=== PATIENT | male | born 1980 | race Caucasian/White ===

== ENCOUNTER 2016-08-20 21:41 | Emergency (ER) | payer OTHER ==
[~2016-08-20] VITALS: Ht 182.9 cm; Wt 65.8 kg
--- NOTE | 2016-08-20 21:53 | NUR ---
Patient to ER bed 8 to gown for evaluation. Side rails up. Report given to Jan. VENEGAS.
[2016-08-20 21:54] VITALS: BP 114/64; PULSE 107; RESP 14; TEMP 98.2; O2SAT 99
--- NOTE | 2016-08-20 22:07 | NUR ---
ER Dr. Crum at bedside examining patient.
[2016-08-20] MEDS ORDERED: NACL 0.9% 1,000 ML IV ONE ×2 (22:11→23:20)
[2016-08-20] MEDS ORDERED: PANTOPRAZOLE SODIUM 40 MG/VIAL (PROTONIX) IVP ONE (22:15)
[2016-08-20] MEDS ORDERED: ONDANSETRON HCL 4 MG/2 ML VIAL IVP ONE (22:15)
--- NOTE | 2016-08-20 22:15 | NUR ---
Pt. presented to ED with c/o n/v with blood and diarrhea since 1800 today. Pt. states that he ate [employer] at noon and began to feel sick. Pt. states that a friend that ate lunch with him is also exhibiting the same symptoms.
--- NOTE | 2016-08-20 22:20 | NUR ---
# 18 gauge angiocath placed to right AC. Use of asceptic technique. Opsite placed over site. Blood return noted. Blood for lab drawn from site. Flushed with 10 cc of normal saline. No evidence of infiltration noted. Patient tolerated well.
[2016-08-20 22:40] LABS: BASOPHILS # (AUTO) 0.1 K/uL (0.0-0.2); EOSINOPHILS # (AUTO) 0.1 K/uL (0.0-0.4); EOSINOPHILS % (AUTO) 0.8 % (0.0-4.0); HEMATOCRIT 52.5 % (36-54); HEMOGLOBIN 17.4 g/dL (14.0-18.0); LYMPHOCYTES # (AUTO) 0.4 K/uL (1.0-5.5); LYMPHOCYTES % (AUTO) 3.2 % (20.5-51.5); MEAN CORPUSCULAR HEMOGLOBIN 29 pg (27-31); MEAN CORPUSCULAR HGB CONC 33 % (32-36); MEAN CORPUSCULAR VOLUME 87 fL (79.0-98.0); MONOCYTES # (AUTO) 0.5 K/uL (0.0-1.0); MONOCYTES % (AUTO) 4.2 % (1.7-9.3); NEUTROPHILS # (AUTO) 10.4 K/uL (1.8-7.7); NEUTROPHILS % (AUTO) 90.8 % (40.0-70.0); PLATELET COUNT (AUTO) 156 K/uL (130-430); RED BLOOD CELL COUNT(AUTO) 6.04 MIL/uL (4.2-6.2); RED CELL DISTRIBUTION WIDTH 11.9 % (9.0-15.0); WHITE BLOOD COUNT (AUTO) 11.5 K/uL (4.8-10.8)
[2016-08-20 23:01] LABS: CALCIUM 9.6 mg/dL (8.4-11.0); CREATININE 1.47 mg/dL (0.55-1.30)
[2016-08-20 23:05] LABS: INR 1.1 (0.80-1.20); PROTHROMBIN TIME 12.4 SECS (9.5-12.5)
[2016-08-20 23:06] LABS: ALBUMIN 5.1 g/dL (3.4-4.8); TOTAL BILIRUBIN 1.5 mg/dL (0.0-1.0); TOTAL PROTEIN, SERUM 8.1 g/dL (6.4-8.3)
--- NOTE | 2016-08-21 00:36 | NUR ---
Dr. Crum at bedside with pt.
--- NOTE | 2016-08-21 01:01 | NUR ---
Patient given written and verbal discharge instructions and verbalizes understanding. ER MD discussed with patient the results and treatment provided. Patient in stable condition. ID arm band removed. IV catheter removed intact and dressing applied, no active bleeding. Rx of zofran given. Patient educated on pain management and to follow up with PMD. Pain Scale 0/10. Opportunity for questions provided and answered.
[2016-08-21 01:02] VITALS: BP 124/69; PULSE 84; RESP 18; TEMP 98; O2SAT 99
== END 2016-08-21 01:01 | disposition home or self-care (01) ==
LOC: SED 21:41
DX: T62.8X1A Toxic effect of other specified noxious substances eaten as food, accidental (unintentional), initial encounter (principal); K52.9 Noninfective gastroenteritis and colitis, unspecified; K92.0 Hematemesis; Y92.89 Other specified places as the place of occurrence of the external cause
CPT/HCPCS: 36415; 80053; 83690; 85025; 85610; 85730; 86886; 86900; 86901; 96361; 96374; 96375; 99285; C9113; J2405; J7030